=== PATIENT | male | born 1975 | race Caucasian/White ===

== ENCOUNTER 2018-11-13 11:48 | Emergency (ER) | payer BC, OTHER ==
[~2018-11-13] VITALS: Ht 165.1 cm; Wt 63.3 kg
[2018-11-13] MEDS ORDERED: KETOROLAC 30 MG/ML VIAL (J1885) IV ONE (13:45)
[2018-11-13] MEDS ORDERED: CLINDAMYCIN 900 MG in APPROPRIATE DILUENT 1 EA IV ONE (13:45)
[2018-11-13 14:49] LABS: BASO % 0.3 % (0.0-1.0); HEMATOCRIT 44.9 % (42.0-52.0); HEMOGLOBIN 14.8 g/dl (13.5-17.5); LYMPH # 1.1 10^3/uL (1.5-4.5); MEAN CORPUSCULAR HEMOGLOBIN 29.5 pg (27.0-33.0); MEAN CORPUSCULAR VOLUME 89.4 fl (80.0-96.0); MONO # 0.9 10^3/uL (0.0-0.8); MONO % 8.7 % (0.0-5.0); NEUTROPHILS # 8.4 10^3/uL (1.8-7.7); NEUTROPHILS % 80.7 % (36.0-66.0); PLATELET COUNT, AUTOMATED 302 10^3/uL (150-450); RED BLOOD COUNT 5.02 10^6/uL (4.30-6.10); WHITE BLOOD COUNT 10.5 10^3/uL (4.0-10.0)
[2018-11-13] MEDS ORDERED: NS 500 ML IV ONE (15:00)
[2018-11-13 15:11] LABS: ERYTHROCYTE SEDIMENTATION RATE 14 mm/hr (0-15)
[2018-11-13 15:21] LABS: BLOOD UREA NITROGEN 12 MG/DL (7-18); C REACTIVE PROTEIN QUANTITATIV 9.22 MG/DL (0.00-0.30); CALCIUM LEVEL 8.7 MG/DL (8.5-10.1); CARBON DIOXIDE LEVEL 28 MEQ/L (21-32); CHLORIDE LEVEL 106 MEQ/L (98-107); CREATININE FOR GFR 1.32 MG/DL (0.70-1.30); GLOMERULAR FILTRATION RATE > 60.0 (>60); GLUCOSE, FASTING 78 MG/DL (70-100); POTASSIUM SERUM 4.3 MEQ/L (3.5-5.1); SODIUM LEVEL 137 MEQ/L (136-145)
[2018-11-13] MEDS ORDERED: ISOVUE-370 76% 100ML VIAL (Q9967) As Ordered ONE (15:23)
[2018-11-13] MEDS ORDERED: LIDOCAINE W/EPINEPHRINE 1% 20ML VIAL SC ONE (17:00)
[2018-11-13] MEDS ORDERED: CLEO300C2 PO (17:40)
[2018-11-13] MEDS ORDERED: KETO10TAB PO (17:40)
[2018-11-13 17:47] VITALS: BP 114/76
--- NOTE | 2018-11-13 19:27 | REP ---
MAXILLOFACIAL CT WITH CONTRAST: HISTORY: Left facial swelling. CONTRAST: [id number] 75 mL. Mucosal thickening is present in the right ethmoid and right frontal sinuses. There is almost complete opacification of the right ethmoid sinus. There is complete opacification of the right frontal sinus. Minimal mucosal thickening is present in the right maxillary and left ethmoid sinuses. The remaining sinuses are clear. maxillary and right ethmoid sinuses. The remaining sinuses are clear. Mucosal thickening involves the right osteomeatal unit. The left osteomeatal unit is patent. The middle and inferior nasal turbinates are partially paradoxical. There is tessie bullosa of the left middle nasal turbinate. There is minimal deviation of the nasal septum to the right superiorly and to the left inferiorly. The nasal septum abuts the left inferior nasal turbinate. The cribriform plate, medial peres of the orbits and optic canals are intact. There is aeration of the right anterior clinoid process. The carotid canals form a segment of the posterolateral peres of the sphenoid sinus. The left sphenoid sinus septum inserts into the left internal carotid canals wall. There is soft tissue thickening along the buccal surface of the left maxilla and body of the left mandible and anterior and lateral to the left maxillary sinus and left zygoma and inferior left orbit This represent and phlegmon. Stranding is present in the overlying subcutaneous tissue. There is thickening of the left platysma muscle. These findings are consistent with edema. The naso-, priscilla-, and hypopharynx are normal in appearance. The contents of the orbits are normal. IMPRESSION:1. Sinus mucosal thickening as described above. 2. There is a phlegmon along the buccal surface of the left maxilla and mandible and anterior and lateral to the left maxillary sinus and zygoma and overlying the left orbit. Electronically Signed by Bernard Tsang MD 11/14/2018 08:42 A
== END 2018-11-13 18:02 | disposition home or self-care (01) ==
LOC: M ED 11:48 → EEVIPCON 11:48 → M ED 18:02
DX: L03.211 Cellulitis of face (principal)
CPT/HCPCS: 10060; 70487; 80048; 85025; 85652; 86140; 87070; 87077; 87186; 87205; 96365; 96366; 96375; 99284; J1885; Q9967